=== PATIENT | female | born 1960 | race Caucasian/White ===

== ENCOUNTER 2018-05-12 15:32 | Emergency (ER) | payer MEDICARE, MEDICAID ==
--- NOTE | 2018-05-12 16:39 | CT ---
[id number] CT/CT Chest WO IV Exam: CT Chest WO IV Clinical Data: DIFFICULTY BREATHING COMPARISON: NO PREVIOUS SIMILAR EXAM IS AVAILABLE FINDINGS: There is mild mediastinal adenopathy. There is no infiltrate. Minimal parenchymal changes are seen in the right middle lobe. There is motion artifact. Median sternotomy sutures are seen. IMPRESSION: NO APPRECIABLE ATELECTASIS. NO INFILTRATE SEEN. Albaro Cruz MD 05/12/18 2226 Thank you for allowing us to participate in the care of your patient.
--- NOTE | 2018-05-12 16:42 | CT ---
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 The patient has trisomy 21. Median sternotomy sutures are seen. The airway appears patent. There is no mass or adenopathy. There is evidence of scoliosis. There are extensive degenerative changes of the cervical spine. IMPRESSION: NO AIRWAY ABNORMALITY IDENTIFIED. Albaro Cruz MD 05/12/18 1640 Thank you for allowing us to participate in the care of your patient.
--- NOTE | 2018-05-12 16:57 | EDM.PDOC ---
ED HPI GENERAL MEDICAL PROBLEM - General Chief Complaint: Respiratory Problem Stated Complaint: aspiration? 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 She has been coughing since 3 pm. No shortness of breath, no chest pain. Oxygen saturations 99% on RA. She is non verbal and has Down's Syndrome. Onset: Today, Sudden - Related Data Allergies Allergy/AdvReac Type Severity Reaction Status Date / Time No Known Allergies Allergy Verified 05/12/18 16:46 Home Meds: Home Meds Aspirin [Halfprin] 81 mg PO DAILY 05/03/13 [History] Levothyroxine 1 tab PO DAILY 05/03/13 [History] Multivitamin with Minerals [Multiple Vitamin] 1 tab PO DAILY 05/03/13 [History] Donepezil [Aricept] 5 mg DAILY 05/12/18 [History] ED ROS GENERAL - Review of Systems Review Of Systems: See Below (ROS obtained by staff member) Constitutional: Reports: No Symptoms HEENT: Reports: No Symptoms Respiratory: Reports: Cough Cardiovascular: Reports: No Symptoms Endocrine: Reports: No Symptoms GI/Abdominal: Reports: No Symptoms : Reports: No Symptoms Musculoskeletal: Reports: No Symptoms Skin: Reports: No Symptoms Neurological: Reports: No Symptoms Psychiatric: Reports: No Symptoms Hematologic/Lymphatic: Reports: No Symptoms Immunologic: Reports: No Symptoms ED EXAM, GENERAL - Physical Exam Exam: See Below Exam Limited By: Physical Impairment General Appearance: Alert, WD/WN, No Apparent Distress Nose: Normal Inspection, Normal Mucosa, No Blood Throat/Mouth: Normal Inspection, Normal Lips, Normal Teeth, Normal Gums, Normal Oropharynx, Normal Voice, No Airway Compromise Head: Atraumatic, Normocephalic Neck: Normal Inspection, Supple, Non-Tender, Full Range of Motion Respiratory/Chest: No Respiratory Distress, No Accessory Muscle Use, Chest Non- Tender, Wheezing Cardiovascular: Normal Peripheral Pulses, Regular Rate, Rhythm, No Edema, No Gallop, No JVD, No Murmur, No Rub GI/Abdominal: Normal Bowel Sounds, Soft, Non-Tender, No Organomegaly, No Distention, No Abnormal Bruit, No Mass Neurological: Alert, Oriented, CN II-XII Intact, Normal Cognition, Normal Gait, Normal Reflexes, No Motor/Sensory Deficits Psychiatric: Normal Affect, Normal Mood Skin Exam: Warm, Dry, Intact, Normal Color, No Rash Lymphatic: No Adenopathy Course - Orders/Labs/Meds Orders: Active Orders 24 hr Category Date Time Status Chest wo Cont [CT] Stat Exams 05/12/18 15:42 Ordered Soft Tissue Neck wo Cont [CT] Stat Exams 05/12/18 15:42 Ordered - Radiology Interpretation Free Text/Narrative:: CT is negative for any aspiration contents, atelectasis, or food contents. - Re-Assessments/Exams Free Text/Narrative Re-Assessment/Exam: 05/12/18 17:[address] exams, patient did cough up a small amount of partially chewed food. Repeat lung examination revealed clear sounds with no wheezing Departure - Departure Time of Disposition: 15:10 Disposition: Home, Self-Care 01 Condition: Good Clinical Impression: Aspiration into airway - Discharge Information *PRESCRIPTION DRUG MONITORING PROGRAM REVIEWED*: Not Applicable *COPY OF PRESCRIPTION DRUG MONITORING REPORT IN PATIENT ASIA: Not Applicable Instructions: Aspiration Precautions, Adult Forms: ED Department Discharge Additional Instructions: Plan 1. Follow up with primary care provider as needed for any additional symptoms 2. Follow aspiration precautions 3. Please call if you have any questions or concerns - Problem List & Annotations (1) Aspiration into airway SNOMED Code(s): 759701661 Code(s): T17.908A - UNSP FB IN RESP TRACT, PART UNSP CAUSING OTH INJURY, INIT Status: Acute Priority: Medium Current Visit: Yes Qualifiers: Encounter type: initial encounter Qualified Code(s): T17.908A - Unspecified foreign body in respiratory tract, part unspecified causing other injury, initial encounter - Problem List Review Problem List Initiated/Reviewed/Updated: Yes - My Orders Last 24 Hours: My Active Orders 05/12/18 15:42 Chest wo Cont [CT] Stat Soft Tissue Neck wo Cont [CT] Stat - Assessment/Plan Last 24 Hours: My Active Orders 05/12/18 15:42 Chest wo Cont [CT] Stat Soft Tissue Neck wo Cont [CT] Stat Assessment:: aspiration Plan: Plan 1. Follow up with primary care provider as needed for any additional symptoms 2. Follow aspiration precautions 3. Please call if you have any questions or concerns
== END 2018-05-12 17:15 | disposition home or self-care (01) ==
LOC: VM.ED 15:32
DX: T17.920A Food in respiratory tract, part unspecified causing asphyxiation, initial encounter (principal); X58.XXXA Exposure to other specified factors, initial encounter; Z79.82 Long term (current) use of aspirin
CPT/HCPCS: 70490; 71250; 99284-25

== ENCOUNTER 2019-03-24 08:07 | Emergency (ER) | payer MEDICARE, MEDICAID ==
[2019-03-24 08:52] LABS: CHLORIDE,CL 103 mmol/L (98-107); SODIUM,NA 143 mmol/L (136-145)
--- NOTE | 2019-03-24 09:18 | EDM.PDOC ---
ED HPI GENERAL MEDICAL PROBLEM - General Chief Complaint: General Time Seen by Provider: 03/24/19 08:14 Source of Information: Reports: EMS Notes Reviewed, [employer] - History of Present Illness INITIAL COMMENTS - FREE TEXT/NARRATIVE: Pt was weak and fell Landed on knee No injury No specific complaints Onset: Sudden Duration: Hour(s): Location: Reports: Generalized - Related Data Allergies Allergy/AdvReac Type Severity Reaction Status Date / Time No Known Allergies Allergy Verified 03/24/19 08:22 Home Meds: Home Meds Aspirin [Halfprin] 81 mg PO DAILY 05/03/13 [History] Levothyroxine 1 tab PO DAILY 05/03/13 [History] Multivitamin with Minerals [Multiple Vitamin] 1 tab PO DAILY 05/03/13 [History] Donepezil [Aricept] 5 mg DAILY 05/12/18 [History] Past Medical History HEENT History: Reports: Cataract, Other (See Below) Other HEENT History: hearing loss. astigmatism. myopia Cardiovascular History: Reports: Syncope, Other (See Below) Other Cardiovascular History: DVT. Left carotid bruit. S/P atrial septal defect closure Respiratory History: Reports: Other (See Below) Other Respiratory History: h/o aspiration. h/o pneumonia Gastrointestinal History: Reports: Chronic Constipation, Colon Polyp, Other ( See Below) Other Gastrointestinal History: dysphagia Neurological History: Reports: Other (See Below) Other Neuro History: Downs syndrome Psychiatric History: Reports: Alzheimers Disease, Other (See Below) Other Psychiatric History: pyschogenic polydipsia Endocrine/Metabolic History: Reports: Hypothyroidism Dermatologic History: Reports: Other (See Below) Other Dermatologic History: onychodystrophy - Infectious Disease History Infectious Disease History: Reports: Other (See Below) Other Infectious Disease History: herpes zoster Social & Family History - Tobacco Use Smoking Status *Q: Never Smoker - Recreational Drug Use Recreational Drug Use: No ED ROS GENERAL - Review of Systems Review Of Systems: See Below Constitutional: Reports: Weakness HEENT: Reports: No Symptoms Respiratory: Reports: No Symptoms Cardiovascular: Reports: No Symptoms GI/Abdominal: Reports: No Symptoms Musculoskeletal: Reports: No Symptoms ED EXAM, GENERAL - Physical Exam Exam: See Below General Appearance: No Apparent Distress Ears: Normal TMs Nose: Normal Inspection Throat/Mouth: Normal Oropharynx Head: Atraumatic Neck: Supple Respiratory/Chest: Lungs Clear Cardiovascular: Regular Rate, Rhythm GI/Abdominal: Soft, Non-Tender Extremities: Normal Inspection Neurological: No Motor/Sensory Deficits Course - Vital Signs Last Recorded V/S: Last Vital Signs Temp 36.9 C 03/24/19 08:07 Pulse 72 03/24/19 08:07 Resp 16 03/24/19 08:07 BP 129/68 03/24/19 08:07 Pulse Ox 100 03/24/19 08:07 - Orders/Labs/Meds Labs: Laboratory Tests 03/24/19 03/24/19 Range/Units 08:33 08:33 WBC 6.1 (4.0-10.0) x10^3/uL RBC 4.44 (4.00-5.50) x10^6/uL Hgb 15.0 (12.0-16.0) g/dL Hct 42.9 (33.0-47.0) % MCV 96.6 H (78.0-93.0) fL MCH 33.8 H (26.0-32.0) pg MCHC 35.0 (32.0-36.0) g/dL RDW Coeff of Andres 13.4 (10.0-15.0) % Plt Count 236 (130-400) x10^3/uL Neut % (Auto) 35.8 L (50.0-80.0) % Lymph % (Auto) 56.8 H (25.0-50.0) % [place] % (Auto) 6.2 (2.0-11.0) % Eos % (Auto) 0.7 (0.0-4.0) % Baso % (Auto) 0.5 (0.2-1.2) % Sodium 143 (136-145) mmol/L Potassium 4.0 (3.5-5.1) mmol/L Chloride 103 (98-107) mmol/L Carbon Dioxide 28 (21-32) mmol/L Anion Gap 16.0 (10-20) mmol/L BUN 15 (7-18) mg/dL Creatinine 1.2 H (0.55-1.02) mg/dL Est Cr Clr Drug Dosing TNP Estimated GFR (MDRD) 46 Glucose 154 H (74-106) mg/dL Calcium 9.3 (8.5-10.1) mg/dL - Re-Assessments/Exams Free Text/Narrative Re-Assessment/Exam: 03/24/19 09:16 Pt stable in ER Departure - Departure Time of Disposition: 09:30 Disposition: Home, Self-Care 01 Clinical Impression: Fall Qualifiers: Encounter type: initial encounter Qualified Code(s): W19.XXXA - Unspecified fall, initial encounter - Discharge Information Referrals: Eric Smart MD [Primary Care Provider] - Additional Instructions: Follow up in clinic Sepsis Event Note - Evaluation Sepsis Screening Result: No Definite Risk - Focused Exam Vital Signs: Vital Signs Temp Pulse Resp BP Pulse Ox 03/24/19 08:07 36.9 C 72 16 129/68 100 Date Exam was Performed: 03/24/19 Time Exam was Performed: 09:14
== END 2019-03-24 09:20 | disposition home or self-care (01) ==
LOC: VM.ED 08:07
DX: R53.1 Weakness (principal); W19.XXXA Unspecified fall, initial encounter; K59.09 Other constipation; G30.9 Alzheimer's disease, unspecified; F02.80 Dementia in other diseases classified elsewhere, unspecified severity, without behavioral disturbance, psychotic disturbance, mood disturbance, and anxiety; E03.9 Hypothyroidism, unspecified; Z79.82 Long term (current) use of aspirin; Z79.890 Hormone replacement therapy; Z79.899 Other long term (current) drug therapy; Z86.010 Personal history of colon polyps; Z86.718 Personal history of other venous thrombosis and embolism
CPT/HCPCS: 36415; 80048; 85025; 99285

== ENCOUNTER 2020-02-08 13:23 | Emergency (ER) | payer MEDICARE, MEDICAID ==
--- NOTE | 2020-02-08 14:18 | CT ---
[id number] CT/CT Head WO IV EXAM: CT Head WO IV CLINICAL DATA: SEIZURE. PATIENT DEVELOPMENTALLY DISABLED; COULD NOT COMPARISON STUDY: None FINDINGS: Within limitations of patient motion artifact no obvious intracranial hemorrhage or extra-axial fluid collection. No CT evidence of acute ischemia. Central predominant parenchymal atrophy. Findings are bilateral and symmetric. Additional changes of chronic small vessel disease include nonmasslike geographic areas of hypodensity in the subcortical and periventricular white matter of both cerebral hemispheres. Bilateral basal ganglia calcification. 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 Differential diagnosis includes chas cisterna magna, however there does appear to be communication between the fourth ventricle and prominent posterior fossa CSF space. Paranasal sinuses and mastoid air cells are clear. IMPRESSION: Within limitations of motion artifact, no evidence of acute intracranial finding. Chronic findings are described above. Alban Donadlson MD 02/08/20 6140 Thank you for allowing us to participate in the care of your patient.
[2020-02-08 14:29] LABS: CHLORIDE,CL 102 mmol/L (98-107); SODIUM,NA 142 mmol/L (136-145)
[2020-02-08] MEDS ORDERED: Cephalexin 500 MG Cap PO ONE (14:32)
[2020-02-08 14:37] LABS: ANION GAP 12.5 mmol/L (10-20)
--- NOTE | 2020-02-08 14:47 | EDM.PDOC ---
ED HPI GENERAL MEDICAL PROBLEM - General Stated Complaint: SEIZURE Time Seen by Provider: 02/08/20 13:23 Source of Information: Reports: EMS, Family History Limitations: Reports: No Limitations - History of Present Illness INITIAL COMMENTS - FREE TEXT/NARRATIVE: Patient comes emergency department [facility] with concerns of abnormal muscle movement. This patient's history is primarily obtained from EMS as well as the caregivers for this patient as she is nonverbal with a history of Down syndrome. The patient over the past month and a half has reportedly by her daily caregivers had some abnormal muscle movements in flexion and extension of her arms and legs. This is gotten worse over the past couple of days. To the point where the caregivers are concerned that she is going to fall and she is unsteady on her feet. She was seen in the primary care clinic today for these abnormal muscle movements had some laboratory evaluation had a decrease of her Namenda. This evening she had severe abnormal contraction and extension of her arms and the patient was assisted to the ground. There was no [place] seizure type activity. There was no loss of consciousness. There was no incontinence of urine. She did not have a postictal period. She did not fall and hit her head. Rest of the HPI and review of systems is unobtainable due to the patient's nonverbal status and Down syndrome. She has not been vomiting she has not had diarrhea. She does not appear to be in any pain according to the staff.No fevers no other changes in medications. - Related Data Allergies Allergy/AdvReac Type Severity Reaction Status Date / Time No Known Allergies Allergy Verified 02/08/20 16:10 Home Meds: Home Meds Aspirin [Halfprin] 81 mg PO DAILY 05/03/13 [History] Levothyroxine 1 tab PO DAILY 05/03/13 [History] Multivitamin with Minerals [Multiple Vitamin] 1 tab PO DAILY 05/03/13 [History] Donepezil [Aricept] 10 mg PO DAILY 05/12/18 [History] Amoxicillin 1,000 mg PO ASDIRECTED 03/24/19 [History] Calcium Carbonate/Vitamin D3 [Caltrate 600 Plus D3 Tablet] 1 tab PO BID 03/24/19 [History] Docusate Sodium [Colace] 200 mg PO BEDTIME 03/24/19 [History] Memantine HCl [Namenda] 5 mg PO DAILY 02/08/20 [History] cephALEXin [Cephalexin] 500 mg PO QID #16 tablet 02/08/20 [Rx] Past Medical History HEENT History: Reports: Cataract, Other (See Below) Other HEENT History: hearing loss. astigmatism. myopia Cardiovascular History: Reports: Syncope, Other (See Below) Other Cardiovascular History: DVT. Left carotid bruit. S/P atrial septal defect closure Respiratory History: Reports: Other (See Below) Other Respiratory History: h/o aspiration. h/o pneumonia Gastrointestinal History: Reports: Chronic Constipation, Colon Polyp, Other (See Below) Other Gastrointestinal History: dysphagia Neurological History: Reports: Other (See Below) Other Neuro History: Downs syndrome Psychiatric History: Reports: Alzheimers Disease, Other (See Below) Other Psychiatric History: pyschogenic polydipsia Endocrine/Metabolic History: Reports: Hypothyroidism Dermatologic History: Reports: Other (See Below) Other Dermatologic History: onychodystrophy - Infectious Disease History Infectious Disease History: Reports: Other (See Below) Other Infectious Disease History: herpes zoster ED ROS GENERAL - Review of Systems Review Of Systems: Unable To Obtain Reason Not Obtained: Nonverbal chronically for this patient. - Physical Exam Exam: See Below Exam Limited By: No Limitations General Appearance: Alert, WD/WN Eye Exam: Bilateral Eye: EOMI, PERRL Ears: Normal External Exam, Normal TMs Nose: Normal Inspection, Normal Mucosa Throat/Mouth: Normal Inspection, Normal Lips, Normal Oropharynx, Normal Voice Head Exam: Atraumatic, Normocephalic Neck: Normal Inspection, Supple, Non-Tender, Full Range of Motion Respiratory/Chest: No Respiratory Distress, Lungs Clear, Normal Breath Sounds, No Accessory Muscle Use, Chest Non-Tender Cardiovascular: Normal Peripheral Pulses, Regular Rate, Rhythm GI/Abdominal: Normal Bowel Sounds, Soft, Non-Tender, No Mass (Female) Exam: Deferred Rectal (Female) Exam: Deferred Neuro Exam (Abbreviated): Alert, Normal Gait, Normal Reflexes, No Motor/Sensory Deficits, Other (I do not identify any of the abnormal muscle twitches or movements that the caregivers have identified nor do they see it in the emergency department.) Back Exam: Normal Inspection, Full Range of Motion Extremities: Normal Inspection Psychiatric: Normal Affect, Normal Mood Skin Exam: Warm, Dry, Intact, Normal Color, No Rash Course - Vital Signs Last Recorded V/S: Last Vital Signs Temp 97.3 F 02/08/20 13:30 Pulse 68 02/08/20 13:30 Resp 18 02/08/20 13:30 BP 128/60 02/08/20 13:30 Pulse Ox 96 02/08/20 13:30 - Orders/Labs/Meds Orders: Active Orders 24 hr Category Date Time Status CULTURE URINE [RM] Stat Lab 02/08/20 14:07 Received Labs: Laboratory Tests 02/08/20 02/08/20 02/08/20 Range/Units 13:59 13:59 13:59 WBC 9.1 (4.0-10.0) x10^3/uL RBC 4.21 (4.00-5.50) x10^6/uL Hgb 14.5 (12.0-16.0) g/dL Hct 42.8 (33.0-47.0) % MCV 101.7 H D (78.0-93.0) fL MCH 34.4 H (26.0-32.0) pg MCHC 33.9 (32.0-36.0) g/dL RDW Coeff of Andres 15.4 H (10.0-15.0) % Plt Count 268 (130-400) x10^3/uL Neut % (Auto) 35.0 L (50.0-80.0) % Lymph % (Auto) 58.4 H (25.0-50.0) % [place] % (Auto) 6.0 (2.0-11.0) % Eos % (Auto) 0.3 (0.0-4.0) % Baso % (Auto) 0.3 (0.2-1.2) % Sodium 142 (136-145) mmol/L Potassium 3.5 (3.5-5.1) mmol/L Chloride 102 (98-107) mmol/L Carbon Dioxide 31 (21-32) mmol/L Anion Gap 12.5 (10-20) mmol/L BUN 18 (7-18) mg/dL Creatinine 1.1 H (0.55-1.02) mg/dL Est Cr Clr Drug Dosing TNP Estimated GFR (MDRD) 51 Glucose 157 H (74-106) mg/dL Lactic Acid 2.3 H* (0.4-2.0) mmol/L Calcium 9.3 (8.5-10.1) mg/dL Corrected Calcium 9.78 (8.5-10.1) mg/dL Total Bilirubin 0.3 (0.2-1.0) mg/dL AST 29 (15-37) U/L ALT 42 (14-59) U/L Alkaline Phosphatase 138 H (46-116) U/L Creatine Kinase 76 (26-192) U/L Total Protein 7.4 (6.4-8.2) g/dL Albumin 3.4 (3.4-5.0) g/dL Globulin 4.0 Albumin/Globulin Ratio 0.85 Urine Color (YELLOW) Urine Appearance (CLEAR) Urine pH (5.0-8.0) Ur Specific [place] Urine Protein (NEGATIVE) mg/dL Urine Glucose (UA) (NEGATIVE) mg/dL Urine Ketones (NEGATIVE) mg/dL Urine Occult Blood (NEGATIVE) Urine Nitrite (NEGATIVE) Urine Bilirubin (NEGATIVE) Urine Urobilinogen (0.2) EU/dL Ur Leukocyte Esterase (NEGATIVE) Urine RBC (NOT SEEN) /HPF Urine WBC (NOT SEEN) /HPF Ur Squamous Epith Cells (NEGATIVE) /HPF Amorphous Sediment Urine Bacteria (NEGATIVE) /HPF Granular Casts (Auto) Urine Mucus (NEGATIVE) /LPF 02/08/20 Range/Units 14:07 WBC (4.0-10.0) x10^3/uL RBC (4.00-5.50) x10^6/uL Hgb (12.0-16.0) g/dL Hct (33.0-47.0) % MCV (78.0-93.0) fL MCH (26.0-32.0) pg MCHC (32.0-36.0) g/dL RDW Coeff of Andres (10.0-15.0) % Plt Count (130-400) x10^3/uL Neut % (Auto) (50.0-80.0) % Lymph % (Auto) (25.0-50.0) % [place] % (Auto) (2.0-11.0) % Eos % (Auto) (0.0-4.0) % Baso % (Auto) (0.2-1.2) % Sodium (136-145) mmol/L Potassium (3.5-5.1) mmol/L Chloride (98-107) mmol/L Carbon Dioxide (21-32) mmol/L Anion Gap (10-20) mmol/L BUN (7-18) mg/dL Creatinine (0.55-1.02) mg/dL Est Cr Clr Drug Dosing Estimated GFR (MDRD) Glucose (74-106) mg/dL Lactic Acid (0.4-2.0) mmol/L Calcium (8.5-10.1) mg/dL Corrected Calcium (8.5-10.1) mg/dL Total Bilirubin (0.2-1.0) mg/dL AST (15-37) U/L ALT (14-59) U/L Alkaline Phosphatase (46-116) U/L Creatine Kinase (26-192) U/L Total Protein (6.4-8.2) g/dL Albumin (3.4-5.0) g/dL Globulin Albumin/Globulin Ratio Urine Color Yellow (YELLOW) Urine Appearance Cloudy H (CLEAR) Urine pH 6.0 (5.0-8.0) Ur Specific [place] 1.025 Urine Protein Trace H (NEGATIVE) mg/dL Urine Glucose (UA) Negative (NEGATIVE) mg/dL Urine Ketones Negative (NEGATIVE) mg/dL Urine Occult Blood Negative (NEGATIVE) Urine Nitrite Negative (NEGATIVE) Urine Bilirubin Negative (NEGATIVE) Urine Urobilinogen 0.2 (0.2) EU/dL Ur Leukocyte Esterase Moderate H (NEGATIVE) Urine RBC 0-5 (NOT SEEN) /HPF Urine WBC 10-20 H (NOT SEEN) /HPF Ur Squamous Epith Cells Rare (NEGATIVE) /HPF Amorphous Sediment Few Urine Bacteria Few H (NEGATIVE) /HPF Granular Casts (Auto) Few Urine Mucus Few H (NEGATIVE) /LPF Meds: Medications Discontinued Medications Generic Name Dose Route Start Last Admin Trade Name Freq PRN Reason Stop Dose Admin Cephalexin 500 mg 02/08/20 14:32 02/08/20 14:50 Keflex PO 02/08/20 14:33 500 mg ONETIME ONE Administration Cephalexin 1 packet 02/08/20 15:01 02/08/20 16:24 Take Home: Cephalexin 500 Mg, 4 Cap Pack PO 02/08/20 15:02 Not Given QID ONE - Radiology Interpretation Free Text/Narrative:: CT of the head per radiology within limitations of motion artifact no evidence of acute intracranial findings. She has some predominant parenchymal atrophy. Bilateral and symmetric. 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 - Re-Assessments/Exams Free Text/Narrative Re-Assessment/Exam: 02/08/20 20:42 Her laboratory evaluation is rather unremarkable. Other than a mildly elevated lactic at 2.3. She clearly has a urinary tract infection as well. Her CT scan is unremarkable. She had no seizure activity or signs of abnormal muscle movement in the emergency department. It is unlikely that her 1-1/2 months of these abnormal muscle movement was caused by the urinary tract infection although it could be exaggerated with the current presence of a urinary tract infection. We will treat her urinary tract infection and see if this is improved. She also had a change in her Namenda which the primary care provider is testing to see if this had an aspect of the abnormal muscle or arms movement. If this does not improve she is to follow-up with their primary care provider the caregivers are comfortable with this plan and their questions are answered. Departure - Departure Time of Disposition: 16:59 Disposition: Home, Self-Care 01 Clinical Impression: Abnormal muscle tone UTI (urinary tract infection) Qualifiers: Urinary tract infection type: site unspecified Hematuria presence: without hematuria Qualified Code(s): N39.0 - Urinary tract infection, site not specified - Discharge Information Prescriptions: cephALEXin [Cephalexin] 500 mg PO QID #16 tablet Instructions: Antibiotic Medicine, Adult, [id number], Urinary Tract Infection, Adult, [id number] Referrals: Edie Aceves MD [Primary Care Provider] - Forms: ED Department Discharge Additional Instructions: Cephalexin 1 capsule 4 times a day for the next 5 days. Starter pack from the ED and Rx to [facility]. Follow up with PCP next week for recheck and see if the symptoms of the abnormal movements have improved. Return to the ED if new or worsening symptoms. Sepsis Event Note (ED) - Focused Exam Vital Signs: Vital Signs Temp Pulse Resp BP Pulse Ox 02/08/20 13:30 97.3 F 68 18 128/60 96 - My Orders Last 24 Hours: My Active Orders 02/08/20 14:07 CULTURE URINE [RM] Stat - Assessment/Plan Last 24 Hours: My Active Orders 02/08/20 14:07 CULTURE URINE [RM] Stat
[2020-02-08] MEDS ORDERED: Take Home: Cephalexin 500 MG Cap, 4 Cap Pack PO ONE (15:01)
== END 2020-02-08 15:30 | disposition home or self-care (01) ==
LOC: VM.ED 13:23
DX: N39.0 Urinary tract infection, site not specified (principal); M62.89 Other specified disorders of muscle; Q90.9 Down syndrome, unspecified; E03.9 Hypothyroidism, unspecified; G30.9 Alzheimer's disease, unspecified; F02.80 Dementia in other diseases classified elsewhere, unspecified severity, without behavioral disturbance, psychotic disturbance, mood disturbance, and anxiety; Z79.82 Long term (current) use of aspirin; Z79.899 Other long term (current) drug therapy
CPT/HCPCS: 36415; 70450; 80053; 81001; 82550; 83605; 85025; 87086; 99284; 99284-25; A9270-GY

== ENCOUNTER 2022-02-11 06:48 | Emergency (ER) | payer MEDICARE, MEDICAID ==
[2022-02-11] MEDS ORDERED: Sodium Chloride 0.9% 10 ML Syringe FLUSH PRN (07:18)
[2022-02-11 07:51] LABS: CHLORIDE,CL 106 mmol/L (98-107); SODIUM,NA 142 mmol/L (136-145)
[2022-02-11 07:52] LABS: ANION GAP 13.5 mmol/L (5-15); ESTIMATED GFR 58 mL/min (>=60)
== END 2022-02-11 09:38 | disposition home or self-care (01) ==
LOC: VM.ED 06:48
DX: R56.9 Unspecified convulsions (principal); E03.9 Hypothyroidism, unspecified; G30.9 Alzheimer's disease, unspecified; F02.80 Dementia in other diseases classified elsewhere, unspecified severity, without behavioral disturbance, psychotic disturbance, mood disturbance, and anxiety; Z79.82 Long term (current) use of aspirin; Z79.899 Other long term (current) drug therapy; Z88.0 Allergy status to penicillin; Z88.2 Allergy status to sulfonamides
CPT/HCPCS: 36415; 80053; 82550; 85025; 99284

== ENCOUNTER 2022-06-22 06:46 | Emergency (ER) | payer MEDICARE, MEDICAID ==
[2022-06-22] MEDS ORDERED: Sodium Chloride 0.9% 10 ML Syringe FLUSH PRN (07:36)
[2022-06-22] MEDS ORDERED: levETIRAcetam in NaCl (iso-os) 500 MG in Premix Bag 1 BAG IV ONE ×2 (07:37)
[2022-06-22 08:24] LABS: CHLORIDE,CL 105 mmol/L (98-107); SODIUM,NA 142 mmol/L (136-145)
[2022-06-22 08:25] LABS: ESTIMATED GFR 58 mL/min (>=60)
== END 2022-06-22 09:31 ==
LOC: VM.ED 06:46
DX: R56.9 Unspecified convulsions (principal); S01.512A Laceration without foreign body of oral cavity, initial encounter; E03.9 Hypothyroidism, unspecified; Z88.0 Allergy status to penicillin; Z88.2 Allergy status to sulfonamides; Z79.82 Long term (current) use of aspirin; Z79.899 Other long term (current) drug therapy
CPT/HCPCS: 80053; 80177; 84436; 84443; 84481; 85025; 86140; 96374; 99284; 99285-25; J1953

== ENCOUNTER 2023-02-25 14:35 | Inpatient (IN) | payer MEDICARE, MEDICAID ==
[2023-02-25] MEDS ORDERED: Ondansetron 4 MG Tab.DIS PO PRN (14:50)
[2023-02-25] MEDS ORDERED: Sodium Chloride 0.9% 1,000 ML IV SCH (15:00)
[2023-02-25] MEDS ORDERED: VANCOmycin 1.25 GM/250 ML 1.25 GM in Premix Bag 1 BAG IV ONE (15:30)
[2023-02-25] MEDS ORDERED: Iopamidol 612 MG/ML 100 ML Bottle IVPUSH ONE (15:39)
[2023-02-25 15:47] LABS: LACTIC ACID 1.8 mmol/L (0.4-2.0)
[2023-02-25 16:13] LABS: APPEARANCE,URINE SLIGHTLY CLOUDY (CLEAR); BILIRUBIN,URINE NEGATIVE (NEGATIVE); COLOR,URINE DARK YELLOW (YELLOW); GLUCOSE,URINE NEGATIVE (NEGATIVE); KETONES,URINE NEGATIVE (NEGATIVE); LEUKOCYTE ESTERASE,URINE TRACE (NEGATIVE); NITRITE,URINE NEGATIVE (NEGATIVE); OCCULT BLOOD,URINE LARGE (NEGATIVE); PROTEIN,URINE 100 mg/dL (NEGATIVE)
[2023-02-25 16:21] LABS: BACTERIA,URINE FEW /HPF (NOT SEEN); HYALINE CASTS,URINE RARE; MUCUS,URINE MANY /LPF (NOT SEEN); SQUAMOUS EPITHELIAL CELLS,UR MODERATE /HPF (NOT SEEN)
[2023-02-25] MEDS: VANCOmycin 1.5 GM/300 ML 1.5 GM in Premix Bag 1 BAG IV SCH (16:39)
[2023-02-25] MEDS: Sodium Chloride 0.9% 1,000 ML IV SCH (16:44)
[2023-02-25] MEDS: Potassium Chloride Riders 20 MEQ in Premix Bag 1 BAG IV SCH ×2 (17:05→17:56)
[2023-02-25] MEDS: metroNIDAZOLE/Normal Saline 500 MG in Premix Bag 1 BAG IV SCH ×2 (18:14→23:34)
[2023-02-26] MEDS: Sodium Chloride 0.9% 1,000 ML IV SCH (03:11)
[2023-02-26] MEDS ORDERED: Bisacodyl 5 MG Tab PO PRN (06:19)
[2023-02-26] MEDS ORDERED: Flumazenil 0.1 MG/ML 5 ML MDV IVPUSH PRN (06:19)
[2023-02-26] MEDS ORDERED: Acetaminophen 650 MG Supp RECTAL PRN (06:19)
[2023-02-26] MEDS ORDERED: LORazepam 2 MG/ML SDV IM PRN (06:19)
[2023-02-26] MEDS ORDERED: Ibuprofen 200 MG Tab PO PRN (06:40)
[2023-02-26] MEDS ORDERED: Hypromellose 0.3% Ophth Soln 15 ML Bottle EYEBOTH PRN (06:46)
[2023-02-26] MEDS ORDERED: Loperamide 2 MG Cap PO PRN (06:48)
[2023-02-26 06:54] LABS: BASOPHILS PERCENT AUTO 0.1 % (0.2-1.2); EOSINOPHILS PERCENT AUTO 0.4 % (0.0-4.0); HEMATOCRIT 36.9 % (33.0-47.0); HEMOGLOBIN 12.1 g/dL (12.0-16.0); IMMATURE GRAN ABSOLUTE AUTO 0.02 x10^3/uL (0.00-0.07); LYMPHOCYTES ABSOLUTE AUTO 1.6 x10^3/uL (1.0-4.8); LYMPHOCYTES PERCENT AUTO 19.7 % (25.0-50.0); MEAN CORPUSCULAR HEMOGLOBIN 32.5 pg (26.0-32.0); MEAN CORPUSCULAR HGB CONC 32.8 g/dL (32.0-36.0); MEAN CORPUSCULAR VOLUME 99.2 fL (78.0-93.0); MONOCYTES ABSOLUTE AUTO 0.3 x10^3/uL (0.0-0.8); MONOCYTES PERCENT AUTO 4.1 % (2.0-11.0); NEUTROPHILS ABSOLUTE AUTO 6.2 x10^3/uL (1.8-7.7); NEUTROPHILS PERCENT AUTO 75.5 % (50.0-80.0); PLATELET COUNT,PLT 246 x10^3/uL (130-400); RED BLOOD CELL COUNT 3.72 x10^6/uL (4.00-5.50); WHITE BLOOD CELL COUNT,WBC 8.2 x10^3/uL (4.0-10.0)
[2023-02-26 07:11] LABS: CALCIUM 7.9 mg/dL (8.5-10.1); CREATININE 0.7 mg/dL (0.55-1.02); EST CRCL DRUG DOSING (CG) 60.62 mL/min
[2023-02-26 07:12] LABS: ANION GAP 11.7 mmol/L (5-15)
[2023-02-26 07:13] LABS: POTASSIUM,K 2.7 mmol/L (3.5-5.1)
[2023-02-26] MEDS: Levothyroxine 125 MCG Tab PO SCH (08:00)
[2023-02-26] MEDS: Potassium Chloride Riders 20 MEQ in Premix Bag 1 BAG IV SCH ×2 (08:25→10:53)
[2023-02-26] MEDS: Aspirin 81 MG Tab.EC PO SCH (08:27)
[2023-02-26] MEDS: cefTRIAXone 1 GM Vial IVPUSH SCH (08:27)
[2023-02-26] MEDS: levETIRAcetam Soln 500 MG/5 ML Cup PO SCH ×2 (08:28→18:10)
[2023-02-26] MEDS: Enoxaparin 40 MG/0.4 ML Syringe SUBCUT SCH (08:29)
[2023-02-26] MEDS ORDERED: FLU (Fluarix Quad) QS2023-24(6MOS UP)/PF 60 MCG/0.5 ML Syringe IM ONE (10:00)
[2023-02-26] MEDS: Dextrose 5%-0.45% NaCl 1,000 ML IV SCH ×2 (10:54→19:53)
[2023-02-26] MEDS: VANCOmycin 1.5 GM/300 ML 1.5 GM in Premix Bag 1 BAG IV SCH (16:04)
[2023-02-27] MEDS: Dextrose 5%-0.45% NaCl 1,000 ML IV SCH ×3 (04:56→23:13)
[2023-02-27] MEDS: Levothyroxine 125 MCG Tab PO SCH (06:33)
[2023-02-27 07:17] LABS: BASOPHILS PERCENT AUTO 0.2 % (0.2-1.2); EOSINOPHILS ABSOLUTE AUTO 0.1 x10^3/uL (0.0-0.5); EOSINOPHILS PERCENT AUTO 1.7 % (0.0-4.0); HEMATOCRIT 36.5 % (33.0-47.0); HEMOGLOBIN 11.9 g/dL (12.0-16.0); IMMATURE GRAN ABSOLUTE AUTO 0.01 x10^3/uL (0.00-0.07); LYMPHOCYTES PERCENT AUTO 33.2 % (25.0-50.0); MEAN CORPUSCULAR HGB CONC 32.6 g/dL (32.0-36.0); MEAN CORPUSCULAR VOLUME 98.1 fL (78.0-93.0); MONOCYTES ABSOLUTE AUTO 0.3 x10^3/uL (0.0-0.8); MONOCYTES PERCENT AUTO 5.4 % (2.0-11.0); NEUTROPHILS ABSOLUTE AUTO 3.5 x10^3/uL (1.8-7.7); NEUTROPHILS PERCENT AUTO 59.3 % (50.0-80.0); PLATELET COUNT,PLT 251 x10^3/uL (130-400); RED BLOOD CELL COUNT 3.72 x10^6/uL (4.00-5.50); WHITE BLOOD CELL COUNT,WBC 5.9 x10^3/uL (4.0-10.0)
[2023-02-27 07:33] LABS: CALCIUM 7.6 mg/dL (8.5-10.1); CREATININE 0.6 mg/dL (0.55-1.02); EST CRCL DRUG DOSING (CG) 70.73 mL/min
[2023-02-27 07:34] LABS: ANION GAP 11.2 mmol/L (5-15); POTASSIUM,K 2.2 mmol/L (3.5-5.1)
[2023-02-27 07:53] LABS: SEDIMENTATION RATE AUTO 75 mm/hr (0-20)
[2023-02-27] MEDS: Potassium Chloride Riders 20 MEQ in Premix Bag 1 BAG IV SCH ×3 (08:56→13:23)
[2023-02-27] MEDS: Aspirin 81 MG Tab.EC PO SCH (08:56)
[2023-02-27] MEDS: Enoxaparin 40 MG/0.4 ML Syringe SUBCUT SCH (08:58)
[2023-02-27] MEDS: levETIRAcetam Soln 500 MG/5 ML Cup PO SCH ×2 (08:59→19:15)
[2023-02-27] MEDS: cefTRIAXone 1 GM Vial IVPUSH SCH (09:06)
[2023-02-27] MEDS ORDERED: MAGNESIUM SULFATE 4 GM/100 ML IV ONE (11:00)
[2023-02-28] MEDS: Levothyroxine 125 MCG Tab PO SCH (06:44)
[2023-02-28 08:01] LABS: CALCIUM 7.8 mg/dL (8.5-10.1); CREATININE 0.7 mg/dL (0.55-1.02); EST CRCL DRUG DOSING (CG) 60.62 mL/min
[2023-02-28 08:02] LABS: ANION GAP 12.6 mmol/L (5-15)
[2023-02-28 08:03] LABS: POTASSIUM,K 2.6 mmol/L (3.5-5.1)
[2023-02-28] MEDS ORDERED: Levothyroxine 25 MCG Tab PO ONE (08:13)
[2023-02-28] MEDS: Aspirin 81 MG Tab.EC PO SCH (08:15)
[2023-02-28] MEDS: Enoxaparin 40 MG/0.4 ML Syringe SUBCUT SCH (08:15)
[2023-02-28] MEDS: cefTRIAXone 1 GM Vial IVPUSH SCH (08:17)
[2023-02-28] MEDS: levETIRAcetam Soln 500 MG/5 ML Cup PO SCH ×2 (08:23→18:24)
[2023-02-28] MEDS: D5 1/2 NS w/ 40 mEq/L KCl 1,000 ML IV SCH ×2 (10:13→23:44)
[2023-02-28] MEDS: Potassium Bicarbonate 25 MEQ Tab.EFF PO SCH ×2 (12:23→20:00)
[2023-03-01] MEDS: Levothyroxine 150 MCG Tab PO SCH (06:34)
[2023-03-01 07:43] LABS: BASOPHILS PERCENT AUTO 0.3 % (0.2-1.2); EOSINOPHILS ABSOLUTE AUTO 0.2 x10^3/uL (0.0-0.5); EOSINOPHILS PERCENT AUTO 4.1 % (0.0-4.0); HEMATOCRIT 37.7 % (33.0-47.0); HEMOGLOBIN 12.7 g/dL (12.0-16.0); IMMATURE GRAN ABSOLUTE AUTO 0.01 x10^3/uL (0.00-0.07); LYMPHOCYTES PERCENT AUTO 49.7 % (25.0-50.0); MEAN CORPUSCULAR HEMOGLOBIN 32.3 pg (26.0-32.0); MEAN CORPUSCULAR HGB CONC 33.7 g/dL (32.0-36.0); MEAN CORPUSCULAR VOLUME 95.9 fL (78.0-93.0); MONOCYTES ABSOLUTE AUTO 0.5 x10^3/uL (0.0-0.8); MONOCYTES PERCENT AUTO 12.4 % (2.0-11.0); NEUTROPHILS ABSOLUTE AUTO 1.3 x10^3/uL (1.8-7.7); NEUTROPHILS PERCENT AUTO 33.2 % (50.0-80.0); PLATELET COUNT,PLT 274 x10^3/uL (130-400); RED BLOOD CELL COUNT 3.93 x10^6/uL (4.00-5.50); WHITE BLOOD CELL COUNT,WBC 3.9 x10^3/uL (4.0-10.0)
[2023-03-01 07:55] LABS: CALCIUM 7.8 mg/dL (8.5-10.1); CREATININE 0.8 mg/dL (0.55-1.02); EST CRCL DRUG DOSING (CG) 53.04 mL/min; MAGNESIUM 1.8 mg/dL (1.8-2.4); POTASSIUM,K 3.4 mmol/L (3.5-5.1)
[2023-03-01 07:56] LABS: ANION GAP 11.4 mmol/L (5-15)
[2023-03-01] MEDS: Enoxaparin 40 MG/0.4 ML Syringe SUBCUT SCH (08:15)
[2023-03-01] MEDS: Potassium Bicarbonate 25 MEQ Tab.EFF PO SCH ×3 (08:15→21:24)
[2023-03-01] MEDS: Aspirin 81 MG Tab.EC PO SCH (08:17)
[2023-03-01] MEDS: levETIRAcetam Soln 500 MG/5 ML Cup PO SCH ×2 (08:19→18:12)
[2023-03-01] MEDS: cefTRIAXone 1 GM Vial IVPUSH SCH (08:21)
[2023-03-01] MEDS ORDERED: Levofloxacin 250 MG Tab PO SCH (14:30)
[2023-03-02] MEDS: Levothyroxine 150 MCG Tab PO SCH (06:15)
[2023-03-02 07:11] LABS: CALCIUM 8.5 mg/dL (8.5-10.1); CREATININE 0.8 mg/dL (0.55-1.02); EST CRCL DRUG DOSING (CG) 53.04 mL/min; POTASSIUM,K 3.6 mmol/L (3.5-5.1)
[2023-03-02 07:13] LABS: ANION GAP 10.6 mmol/L (5-15)
[2023-03-02] MEDS: Potassium Bicarbonate 25 MEQ Tab.EFF PO SCH (08:09)
[2023-03-02] MEDS: Aspirin 81 MG Tab.EC PO SCH (08:09)
[2023-03-02] MEDS: levETIRAcetam Soln 500 MG/5 ML Cup PO SCH (08:09)
[2023-03-02] MEDS: Enoxaparin 40 MG/0.4 ML Syringe SUBCUT SCH (08:10)
[2023-03-02] MEDS ORDERED: FLU (Fluarix Quad) QS2023-24(6MOS UP)/PF 60 MCG/0.5 ML Syringe IM ONE (11:45)
== END 2023-03-02 10:46 | DRG 640 ==
LOC: VM.MS 14:35
PROVIDERS: ADMIT Family Medicine; ATTEND Family Medicine
DX: E87.6 Hypokalemia (principal); J18.9 Pneumonia, unspecified organism; N39.0 Urinary tract infection, site not specified; E86.0 Dehydration; Z66 Do not resuscitate; E03.9 Hypothyroidism, unspecified; E83.42 Hypomagnesemia; D72.829 Elevated white blood cell count, unspecified; E87.0 Hyperosmolality and hypernatremia; G30.9 Alzheimer's disease, unspecified; K59.09 Other constipation; F02.80 Dementia in other diseases classified elsewhere, unspecified severity, without behavioral disturbance, psychotic disturbance, mood disturbance, and anxiety; G40.909 Epilepsy, unspecified, not intractable, without status epilepticus; Z88.0 Allergy status to penicillin; Z88.2 Allergy status to sulfonamides; Z86.718 Personal history of other venous thrombosis and embolism; Z79.82 Long term (current) use of aspirin; Q90.9 Down syndrome, unspecified; Z79.899 Other long term (current) drug therapy; Z83.719 Family history of colon polyps, unspecified; Z79.890 Hormone replacement therapy
CPT/HCPCS: 36415; 71046; 74177; 80048; 80202; 81001; 83605; 83735; 84443; 85025; 85652; 87040; 87070; 87086; A9270-GY; J0696; J1650; J1836; J3370; J3475; J3480; J7030; J7042; Q9967